=== PATIENT | male | born 1975 | race American Indian/Alaskan Native ===

== ENCOUNTER 2019-02-07 09:06 | Outpatient (CLI) | payer BC | END 2019-02-07 09:07 | disposition home or self-care (01) | LOC: C.PAT 09:06 | DX: K82.4 Cholesterolosis of gallbladder (principal) ==

== ENCOUNTER 2019-02-22 07:48 | Day surgery (SDC) | payer BC ==
[2019-02-07 09:25] VITALS: BMI 34.4
[2019-02-22] MEDS ORDERED: Bupivacaine Liposomal Inj 20 ml INFIL ONE (08:02)
[2019-02-22] MEDS ORDERED: Sodium Chloride 0.9% 40 ML IV ONE (08:18)
[2019-02-22] MEDS ORDERED: ceFAZolin 1 gm in NS 1 GM/100 ML BAG IVPB ONE ×2 (08:18→09:28)
[2019-02-22] MEDS ORDERED: Lidocaine/Epinephrine 1% 1:100000 10 ML IJ ONE (08:19)
[2019-02-22] MEDS ORDERED: Bupivacaine 0.25% 20 ML INJ IJ ONE (08:19)
[2019-02-22] MEDS ORDERED: Dexamethasone 4 mg/1 ml ONE (08:22)
[2019-02-22] MEDS ORDERED: Midazolam 2 MG/2 ML VIAL ONE (08:47)
[2019-02-22] MEDS ORDERED: Propofol 10 mg/ml Inj (20 ML) ONE (08:47)
[2019-02-22] MEDS ORDERED: Rocuronium 10 mg/ml (5 ml) ONE (08:48)
[2019-02-22] MEDS ORDERED: Neostigmine 1:1000 (1 mg/ml) Inj ONE (12:02)
--- NOTE | 2019-02-22 12:51 | PCM.SURG1 ---
Surgeon's Initial Post Op Note - Surgeon's Notes Surgeon: Garrick Nguyen MD Hand Paster: JIMMY Barrett Type of Anesthesia: General Endo Pre-Operative Diagnosis: GallBladder Polyp. Abdominal Pain Operative Findings: Chronic Cholecystitis. Extensive Post inflammatory Adhesions. GB Polyp Post-Operative Diagnosis: Chronic Cholecystitis. Extensive Post inflammatory Adhesions. GB Polyp Operation Performed: Robotic Cholecystectomy. Robotic Extensive Adhesionolysis with lysis of adhesions. Robotic TAP Block placement bilateral Specimen/Specimens Removed: Gallbladder with possible Polyp Estimated Blood Loss: EBL {In ML}: 10 Blood Products Given: N/A Drains Used: No Drains Post-Op Condition: Good Date of Surgery/Procedure: 02/22/19 Time of Surgery/Procedure: 12:51
[2019-02-22] MEDS: HYDROmorphone 0.5 mg/0.5 ml ISec IVP PRN ×2 (13:00→13:15)
[2019-02-22] MEDS ORDERED: Lactated Ringer's 1,000 ML IV ONE (13:30)
[2019-02-22 14:03] VITALS: O2SAT 95
[2019-02-22 14:49] VITALS: BP 136/90; PULSE 84; RESP 15; TEMP 97.5
--- NOTE | 2019-02-24 00:10 | OP ---
PROCEDURE DATE: 02/22/2019 PREOPERATIVE DIAGNOSES: 1. Gallbladder polyp. 2. Chronic cholecystitis. 3. Abdominal pain. POSTOPERATIVE DIAGNOSES: 1. Chronic cholecystitis with gallbladder polyp. 2. Extensive postinflammatory adhesion of the right upper quadrant. 3. Abdominal pain. PROCEDURE DONE: 1. Robotic cholecystectomy. 2. Robotic extensive enterolysis and lysis of adhesion. 3. Laparoscopic bilateral TAP block placement. SURGEON: Familia Nguyen MD. GRADING MACHINE OPERATOR: JIMMY Barrett. ANESTHESIA: General endotracheal tube anesthesia. ESTIMATED BLOOD LOSS: Around 10 mL. DRAINS: None. PATHOLOGY: Gallbladder was sent for the pathology. COMPLICATIONS: None. INTRAOPERATIVE FINDINGS: The patient had extensive omental adhesion in the right upper quadrant as well as omental adhesion and colonic adhesion to the gallbladder. It appeared to be the patient had chronic multiple cholecystitis attacks in the past and extensive enterolysis as well as lysis of adhesion was done to complete the procedure. It took approximately 30 to 40 minutes extra for the routine procedure. DESCRIPTION OF THE PROCEDURE: On intraoperative steps, this is a 44-year-old male who was diagnosed with gallbladder polyp with recurrent upper abdominal pain with possible chronic cholecystitis, and the patient was consented for the robotic cholecystectomy, possible open and brought to the OR, placed supine on the operating table. After induction of the anesthesia, the abdomen was prepped and draped in usual sterile fashion. A supraumbilical transverse incision was made using open technique. Peritoneal cavity was entered. Pneumo was created. Another 3.8 mm port was placed in the upper abdomen. Robot was brought in. Camera arm as well as arm 1 and arm 2 were docked and the gallbladder appeared to be completely covered with omentum as well as adhesed to the duodenum at the body part of the gallbladder and first, gallbladder fundus was identified. It was retracted cranially and omentum was dissected free from the gallbladder as well as a dissection was done for duodenum as well as colon, dissected free from the gallbladder, and dissection was carried down up to the infundibulum and the Calot's triangle and complete lysis of adhesion as well as enterolysis was done in order to identify the Calot's triangle. Now, the anterior and posterior leaflet was dissected and cystic duct and cystic artery were identified. The top-down approach was done. The critical view of safety was also identified and the cystic duct and cystic artery were clipped at three places and cut in between two clips nearby gallbladder, and gallbladder was dissected free from the gallbladder fossa, taken in EndoCatch bag, taken out through the umbilical port site and sent off the table for the pathology. There was a proper hemostasis in each and every part of the procedure. The gallbladder fossa hemostasis was achieved. All the fluid was suctioned out and after proper hemostasis, bilateral TAP block was given. The 30:30 mL of Exparel with Decadron was injected and the transverse abdominis muscle block was given and after that, all the ports were taken out under vision. Pneumo was deflated and umbilical port site was closed in two-layer, the fascia with 0-Vicryl interrupted suture, skin with 4-0 Monocryl at all the port site, and dry sterile dressing was applied. The patient tolerated procedure well. Count of instrument and gauze was correct. There was no apparent complication. The patient was extubated in OR and sent to the postanesthesia care unit in stable condition. Familia Nguyen MD
== END 2019-02-22 15:00 | disposition home or self-care (01) ==
LOC: C.SDS 07:48
PROVIDERS: ATTEND Surgery Surgical Critical Care
DX: K82.4 Cholesterolosis of gallbladder (principal); K81.1 Chronic cholecystitis
CPT/HCPCS: 47562; 82948; 88304; J0690; J1100; J1170; J2001; J2250; J2405; J2704; J2710; J3010; J7030; J7120